=== PATIENT | female | born 1950 | race Asian ===

== ENCOUNTER → 2018-04-06 | Day surgery (SDC) | payer OTHER, MEDICARE ==
[~2018-04-06] VITALS: Ht 162.6 cm; Wt 44.5 kg
[2018-04-06 06:57] LABS: ABSOLUTE BASOPHIL COUNT 0 /CUMM (0.0-0.2); ABSOLUTE EOSINOPHIL COUNT 0.1 /CUMM (0.0-0.7); ABSOLUTE GRANULOCYTE CT 3.3 /CUMM (1.4-6.5); ABSOLUTE LYMPH COUNT 1.1 /CUMM (1.2-3.4); ABSOLUTE MONOCYTE COUNT 0.4 /CUMM (0.10-0.60); BASOPHIL % 0.3 % (0.0-2.0); EOSINOPHIL % 1.3 % (0-5); GRANULOCYTE % 68.2 % (42.2-75.2); HEMATOCRIT 26.9 % (37-47); MEAN CORPUSCULAR HGB 27.4 PG (27.0-31.0); MEAN CORPUSCULAR HGB CONC 33.4 G/DL (33.0-37.0); MEAN PLATELET VOLUME 6.5 FL (7.4-10.4); PLATELET COUNT 413 /CUMM (130-400); RBC DISTRIBUTION WIDTH 17.3 % (11.5-14.5); RED BLOOD CELL CT 3.28 /CUMM (4.20-5.40); WHITE BLOOD CELL COUNT 4.9 /CUMM (4.8-10.8)
--- NOTE | 2018-04-06 09:20 | Operative Report ---
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 After injecting local anesthetic in the right infraclavicular area, skin, subcutaneous to the clavicle, and inferiorly where the pocket will be, the patient was repositioned to Trendelenburg. Putting your right index finger on the sternal notch and thumb pressing down lateral to the curve of the clavicle, I made a puncture through the skin with the 15 blade scalpel next to thumb. Then along that line towards the tip of your finger, advance a large- bore needle, bevel towards the feet, on a slip tip 10 mL syringe barrel flat against the deltoid, advancing to bone and then "walking" it down just under the clavicle keeping the needle flat as possible, while maintaining vacuum with the plunger, accessing the subclavian venous blood, then replacing the syringe with a wire, sliding in with minimum resistance, confirming the position with the C- arm fluoroscope, making sure the wire is traveling down along the cava towards the right side of the heart and not up or across, and no ectopy. Next I secured the wire to the drape, measured (approximately 23 cm), cut and attached the catheter to the port. Approximately 3-4 cm inferior to the stick site a 2-1/2 cm long skin incision was made with a 15 blade scalpel along Langers lines. It was deepened with cautery and a space was developed inferiorly under the subcutaneous layer. The Port-A-Cath was laid in there and secured in [address] with 2-0 Prolene through the holes in the port, the sutures were kept loose on snaps at this point. Next the catheter was tunneled up subcutaneously with a snap and brought out through the stick site next to the wire. Then the dilator only, was passed over the wire until you could feel it slide under the clavicle, then removed, then re-advanced this time with the peel-away sheath over it, while advancing simultaneously pull the dilator out and advance the sheath, eventually pulling out the dilator and wire completely. Then the catheter was put into the sheath as far as it'll go then while holding that knuckle down with DeBakey's, gently peel-away the sheath with your medical assistant. Now the correct position of the catheter was confirmed with the fluoroscope, using a Pepper needle and heparinized saline solution, the catheter was first aspirated then flushed with approximately 3 mL's, with minimal resistance. The patient was repositioned to neutral, after tying down the 2 Prolenes, the larger incision was closed in layers, 3-0 Vicryl deep and 4-0 subcuticular Monocryl for the skin, and one subcuticular Monocryl for the stick site. Both areas were covered with Mastisol Steri-Strips Telfa and Tegaderm. Chest x-ray was ordered to be done in the recovery room. Lap and sponge counts were correct. Wound expectancy was clean, IV fluids crystalloid, complications none, patient tolerated the procedure well was awakened and returned to the recovery room in satisfactory condition.
--- NOTE | 2018-04-06 11:28 | RADIOLOGY REPORT ---
EXAMINATION: XR PORTABLE CHEST CLINICAL INFORMATION: Status post Port-A-Cath placement. COMPARISON: There are no recent prior studies available for comparison. CT scan of the chest obtained 09/24/2013 was reviewed. TECHNIQUE: Portable AP 80 degrees semiupright view of the chest was obtained. FINDINGS: There is a Port-A-Cath from the right chest, with the tip of the catheter at the cavoatrial junction. No pneumothoraces are demonstrated. The lung barr are moderately well-expanded. There are multiple areas of irregular patchy opacification, most prominent in the right mid and right lower zones. There may be small right greater than left pleural effusions. The cardiac silhouette is normal. The aortic arch is heavily calcified and unfolded and the descending artery is tortuous. There is no definite hilar lymphadenopathy. There are no acute osseous findings. IMPRESSION: 1. There is a Port-A-Cath from the right chest, with the tip at the cavoatrial junction. 2. No pneumothoraces are demonstrated. There may be small pleural effusions. There is extensive atheromatous calcification of the aorta. 3. There are patchy opacities in the lungs bilaterally, most prominent in the right mid and right lower zones.
--- NOTE | 2018-04-07 11:17 | RADIOLOGY REPORT ---
EXAMINATION: XR PORT-A-CATH INSERTION OR CLINICAL INFORMATION: Port-A-Cath insertion COMPARISON: None TECHNIQUE: Fluoroscopic imaging equipment was provided to the operating room for Port-A-Cath insertion performed by Dr. Harrell. Number of saved images: 1. Fluoroscopy time: 5 seconds. Dose: 0.665 Gycm2 FINDINGS: The fluoroscopic imaging was not performed for diagnostic purposes. Please refer to the operative report regarding procedure details. IMPRESSION: Fluoroscopic imaging equipment was utilized within the operating room by Dr. Harrell for Port-A-Cath insertion. Please refer to the operative report.
== END ==
LOC: STS 02:33
PROVIDERS: Surgery
DX: C78.7 Secondary malignant neoplasm of liver and intrahepatic bile duct (principal); C24.9 Malignant neoplasm of biliary tract, unspecified; E11.9 Type 2 diabetes mellitus without complications; Z79.84 Long term (current) use of oral hypoglycemic drugs; I10 Essential (primary) hypertension
CPT/HCPCS: 36415; 71045; 76000; 77001; 93005; 93010; C1751; J0690; J1644; J2250; J3490